=== PATIENT | male | born 1990 | race African-American/Black ===

== ENCOUNTER 2018-07-25 03:10 | Emergency (ER) | payer OTHER ==
[2018-07-25 03:18] VITALS: BP 128/86
--- NOTE | 2018-07-25 03:50 | EDPHY ---
H & P Stated Complaint: Rectal Pain Time Seen by Provider: 07/25/18 03:18 HPI/ROS: Chief Complaint: Rectal pain HPI: 27-year-old male with a history of hemorrhoids presenting with 2 days of worsening swelling hemorrhoids and rectal pain. He has been doing Sitz baths, topical treatments with witch Margret with no relief. He has not required surgical drainage in the past. No fevers or chills. No abdominal pain. ROS: 10 systems were reviewed and were negative except those elements noted in the HPI. PMH: Hemorrhoids Social History: No smoking, no alcohol, no recreational drug use Family History: non-contributory Physical Exam: Gen: Awake, Alert, No Distress HEENT: Nose: no rhinorrhea Eyes: PERRLA, EOMI Mouth: Moist mucosa Neck: Supple, no JVD Chest: nontender, lungs clear to auscultation Heart: S1, S2 normal, no murmur Abd: Soft, non-tender, no guarding Rectal: Patient has 3 very large thrombosed external hemorrhoids the largest being 2 x 4 cm. Back: no CVA tenderness, no midline tenderness Ext: no edema, non-tender Skin: no rash Neuro: CN II-XII intact, Sensation grossly intact, Strength 5/5 in bilateral upper and lower extremities - Personal History Current Tetanus/Diphtheria Vaccine: Yes Current Tetanus Diphtheria and Acellular Pertussis (TDAP): Yes - Medical/Surgical History Hx Chronic Respiratory Disease: No Hx Diabetes: Yes Hx Cardiac Disease: No Hx Renal Disease: No Hx Cirrhosis: No Hx Alcoholism: No Hx HIV/AIDS: No Hx Splenectomy or Spleen Trauma: No Other PMH: DM T2 - Social History Smoking Status: Never smoked Constitutional: Initial Vital Signs Temperature (C) 36.7 C 07/25/18 03:16 Heart Rate 59 L 07/25/18 03:16 Respiratory Rate 16 07/25/18 03:16 Blood Pressure 128/86 H 07/25/18 03:16 O2 Sat (%) 98 07/25/18 03:16 O2 Delivery Mode Room Air Allergies/Adverse Reactions: No Known Allergies Allergy (Unverified 07/25/18 03:15) Home Medications: Medication Instructions Recorded Metformin HCl ER 07/25/18 Medical Decision Making Procedures: Procedure: Excision of thrombosed hemorrhoids. I obtained verbal consent from the patient to excise the thrombosed hemorrhoid who was informed about the possibility of bleeding and pain. The hemorrhoid was anesthetized with 1% lidocaine with epinephrine. The the 2 x 4 cm hemorrhoid open with an elliptical incision with a 11 blade scalpel. A moderate amount of clot was evacuated. A 2nd smaller hemorrhoid was incised in similar fashion with a small amount of clot excised. Both were packed with gauze. The patient tolerated the procedure well. The procedure was performed by myself. ED Course/Re-evaluation: 27-year-old male with thrombosed external hemorrhoids. These were excised by me. Packing placed. Will discharge with ibuprofen and acetaminophen, Sitz baths, follow up with general surgeon in 3-4 days for further evaluation. Departure - Departure Disposition: Home, Routine, Self-Care Clinical Impression: Hemorrhoids, external, thrombosed Condition: Good Instructions: Thrombosed Hemorrhoid (ED) Additional Instructions: Continue for from a Sitz bath as 30 4 times a day. You may continue to have some bleeding from the site. Return to the emergency department for persistent large amounts of bleeding. Take ibuprofen, 600 mg every 8 hr. You may alternate with acetaminophen, 1000 mg every 8 hr. Follow up with general surgeon in 3-4 days for further evaluation. Referrals: Beltran Stephen MD [Medical Doctor] - As per Instructions
[2018-07-25] MEDS ORDERED: IBUPROFEN 600 MG TAB PO ONE (03:51)
== END 2018-07-25 04:00 | disposition home or self-care (01) ==
PROC: 06BY3ZC Excision of Hemorrhoidal Plexus, Percutaneous Approach (ICD-10-PCS; principal; 2018-07-25)
DX: K64.5 Perianal venous thrombosis (principal)

== ENCOUNTER 2018-07-25 11:10 | Emergency (ER) | payer OTHER ==
[2018-07-25] MEDS ORDERED: LIDOCAINE 2% JELLY 20 ML (UROJECT) UR ONE (11:29)
--- NOTE | 2018-07-25 11:36 | EDPHY ---
H & P Time Seen by Provider: 07/25/18 11:20 HPI/ROS: CHIEF COMPLAINT: "Hemorrhoid pain" HISTORY OF PRESENT ILLNESS: 27-year-old male seen emergency department earlier today for thrombosed hemorrhoid with excision of thrombus as well as packing. Returns to the ER complaining of continued pain, attempted to remove packing but experience too much pain. PRIMARY CARE PROVIDER: REVIEW OF SYSTEMS: 10 systems reviewed and are negative with exception of illness mentioned in the history of present illness PHYSICAL EXAM (Prior to examination, patient consented to physical exam, hands were washed and my usual and customary physical exam procedures followed) 1) GENERAL: Well-developed, well-nourished, alert and oriented. Appears to be in no acute distress. 2) HEAD: Normocephalic 3) HEENT: sclera anicteric 4) LUNGS: Breathing comfortably. [5) RECTAL: Packing in place. No evidence of perianal abscess or cellulitis. Smoking Status: Never smoked Constitutional: Initial Vital Signs Temperature (C) 36.6 C 07/25/18 11:11 Heart Rate 74 07/25/18 11:11 Respiratory Rate 14 07/25/18 11:11 Blood Pressure 138/76 H 07/25/18 11:11 O2 Sat (%) 97 07/25/18 11:11 O2 Delivery Mode Room Air Allergies/Adverse Reactions: No Known Allergies Allergy (Unverified 07/25/18 03:15) Home Medications: Medication Instructions Recorded Metformin HCl ER 07/25/18 oxyCODONE/APAP 5/325 [Percocet 1 tab PO Q6 #10 tab 07/25/18 5/325] MDM/Departure - MDM Procedures: Procedure: Removal wound packing Patient requested anesthesia. 1% plain lidocaine infiltrated by myself in usual and customary technique. The packing was then easily removed. I then further placed lidocaine jelly on this area for topical anesthesia. Medications Given: Discontinued Medications Lidocaine (Uroject Lidocaine 2% Jelly) 20 ml UR EDNOW ONE Stop: 07/25/18 11:30 Last Admin: 07/25/18 11:40 Dose: 20 ml Oxycodone/Acetaminophen (Percocet 5/325) 1 tab PO EDNOW ONE Stop: 07/25/18 12:50 Last Admin: 07/25/18 13:06 Dose: 1 tab ED Course/Re-evaluation: Patient has no evidence of perianal abscess or cellulitis. Discussed continued therapy for his hemorrhoids including Sitz baths. Today is Wednesday. Recommend follow up with on-call General surgery. Discussed increasing fluid and fiber intake. He feels comfortable being discharged. Stressed follow up with General surgery. I do not think that emergent surgery consultation indicated. Care of patient under supervision of secondary supervising physician Dr Sanches . - Depart Disposition: Home, Routine, Self-Care Clinical Impression: Hemorrhoids, external, thrombosed Condition: Good Instructions: Hemorrhoids (ED) Additional Instructions: I recommend you increase your fluid and fiber intake. Recommend you purchase yjjr-fah-tarepri topical analgesia such as Nupercainal to apply to your anal region. Prescriptions: oxyCODONE/APAP 5/325 [Percocet 5/325] 1 tab PO Q6 #10 tab Referrals: Josep Mckoy MD [Medical Doctor] - 1-2 days without fail
[2018-07-25] MEDS ORDERED: OXYCODONE/APAP 5/325 TAB PO ONE (12:49)
[2018-07-25 13:15] VITALS: BP 118/82
== END 2018-07-25 13:14 | disposition home or self-care (01) ==
DX: G89.18 Other acute postprocedural pain (principal); Z98.890 Other specified postprocedural states; Z87.19 Personal history of other diseases of the digestive system